=== PATIENT | female | born 1940 | race Caucasian/White ===

== ENCOUNTER 2017-01-30 10:20 | Day surgery (SDC) | payer MEDICARE, MEDICAID ==
[~2017-01-30 10:20] MED LIST: Lactated Ringers 1,000 ML IV SCH; Sodium Chloride 0.9% 10 ML Syringe FLUSH PRN
--- NOTE | 2017-01-30 10:57 | PCM.HPR ---
H & P Addendum review - H & P Addendum Review Date of Original H & P: 01/23/17 Date Reviewed: 01/30/17 Time Reviewed: 10:57 Patient was Examined: No Changes
[2017-01-30] MEDS ORDERED: Midazolam 1 MG/ML 2 ML SDV ONE (11:00)
[2017-01-30] MEDS ORDERED: fentaNYL 100 MCG/2 ML SDV ONE (11:00)
[2017-01-30] MEDS ORDERED: Propofol 200 MG/20 ML SDV ONE (11:01)
[2017-01-30] MEDS ORDERED: Lidocaine 2% 5 ML SDV ONE (11:15)
[2017-01-30] MEDS ORDERED: Propofol 200 MG/20 ML SDV IV ONE (11:15)
--- NOTE | 2017-01-30 11:33 | PCM.OPNOTE ---
- General Post-Op/Procedure Note Date of Surgery/Procedure: 01/30/17 Operative Procedure(s): EGD Findings: Small HH Pre Op Diagnosis: Dysphasia Post-Op Diagnosis: Same Anesthesia Technique: MAC Primary Surgeon: Kirill Coyle Anesthesia Provider: Caitlyn Marquez Complications: None Condition: Good Free Text/Narrative:: Intake & Output 01/29/17 01/30/17 01/30/17 22:59 06:59 14:59 Intake Total 300 Balance 300
--- NOTE | 2017-01-30 13:37 | OR ---
Date of Procedure: 01/30/2017 PREOPERATIVE DIAGNOSIS: Dysphagia. POSTOPERATIVE DIAGNOSIS: Small hiatal hernia. PROCEDURE: EGD. ANESTHESIA: IV sedation. DESCRIPTION OF PROCEDURE: The patient was brought to the procedure room, where IV sedation was administered. An oral bite block was placed and the upper endoscope advanced into the cervical esophagus with some difficulty, requiring some mild pressure. Vocal cords and hypopharynx all appeared normal. The scope was then advanced to the 3rd portion of the duodenum. The duodenum and pylorus were normal. The antrum and body of the stomach were normal. Retroflexion revealed a small hiatal hernia. Squamocolumnar junction was normal. There was no stricture, esophagitis, erosions or other abnormalities noted. Scope was slowly withdrawn through the esophagus, which all appears normal. I do not see any source for the patient's dysphagia. I will discuss the findings with Alma Jean Baptiste, and if symptoms persist, an esophagram may be beneficial for the evaluation of her swallowing. TONI CHRISTIANSON MD /[id number]
[2017-01-30 14:01] VITALS: BP 144/75
== END 2017-01-30 13:03 | disposition home or self-care (01) ==
LOC: LL.SDS 10:20
PROVIDERS: ATTEND Surgery
DX: K44.9 Diaphragmatic hernia without obstruction or gangrene (principal); Z79.899 Other long term (current) drug therapy
CPT/HCPCS: 43235; J2250; J2704; J3010; J7120; 00740

== ENCOUNTER 2023-03-04 19:23 | Emergency (ER) | payer MEDICARE, MEDICAID ==
[2023-03-04 19:56] LABS: BASOPHILS ABSOLUTE AUTO 0.05 K/uL (0.00-0.20); EOSINOPHILS ABSOLUTE AUTO 0.48 K/uL (0.00-0.50); EOSINOPHILS PERCENT AUTO 9.2 % (0.0-5.0); HEMATOCRIT 40.3 % (34.0-46.0); HEMOGLOBIN 13.4 g/dL (11.7-15.5); LYMPHOCYTES ABSOLUTE AUTO 1.32 K/uL (0.50-3.50); LYMPHOCYTES PERCENT AUTO 25.4 % (10.0-50.0); MEAN CORPUSCULAR HEMOGLOBIN 30.5 pg (28.2-33.3); MEAN CORPUSCULAR HGB CONC 33.3 g/dL (31.7-36.0); MEAN CORPUSCULAR VOLUME 91.8 fL (84.0-98.0); MONOCYTES ABSOLUTE AUTO 0.38 K/uL (0.00-1.00); MONOCYTES PERCENT AUTO 7.3 % (2.0-14.0); NEUTROPHILS ABSOLUTE AUTO 2.96 K/uL (1.40-7.00); NEUTROPHILS PERCENT AUTO 57.1 % (45.0-80.0); PLATELET COUNT,PLT 188 K/uL (150-350); RED BLOOD CELL COUNT 4.39 M/uL (3.77-5.09); RED CELL DISTRIBUTION WIDTH 13.7 % (11.2-14.1); WHITE BLOOD CELL COUNT,WBC 5.2 K/uL (4.0-10.2)
[2023-03-04] MEDS: Nitroglycerin/D5W 25 MG/250 ML BOTTLE IV SCH (19:58)
[2023-03-04] MEDS: Sodium Chloride 0.9% 250 ML IV SCH (20:04)
[2023-03-04 20:16] LABS: ALBUMIN 4.4 g/dL (3.4-5.0); BILIRUBIN TOTAL 0.7 mg/dL (0.2-1.0); CREATININE 0.84 mg/dL (0.51-1.17); EST CRCL DRUG DOSING (CG) 44.86 mL/min; POTASSIUM,K 3.6 mmol/L (3.5-5.1); PROTEIN TOTAL,TP 7.5 g/dL (6.4-8.2)
[2023-03-04 20:21] LABS: PROTHROMBIN TIME 10.4 SEC (9.0-11.1)
[2023-03-04] MEDS: Labetalol 20 MG/4 ML Syringe IVPUSH ONE (20:53)
[2023-03-04] MEDS: Sodium Chloride 0.9% 10 ML Syringe FLUSH PRN (20:54)
[2023-03-04 21:29] VITALS: PULSE 60
[2023-03-04 21:48] VITALS: BP 170/86
== END 2023-03-04 22:00 | disposition home or self-care (01) ==
LOC: LL.ED 19:23
DX: I10 Essential (primary) hypertension (principal); E78.00 Pure hypercholesterolemia, unspecified; E03.9 Hypothyroidism, unspecified; E66.9 Obesity, unspecified; Z68.29 Body mass index [BMI] 29.0-29.9, adult
CPT/HCPCS: 36415; 80053; 83880; 84484; 85025; 85610; 93005; 93010; 96365; 96375; 99284; 99284-25; J3490; J7050

== ENCOUNTER 2023-03-10 19:49 | Emergency (ER) | payer MEDICARE, MEDICAID ==
[2023-03-10 20:45] LABS: BASOPHILS ABSOLUTE AUTO 0.07 K/uL (0.00-0.20); BASOPHILS PERCENT AUTO 1.5 % (0.0-2.0); EOSINOPHILS ABSOLUTE AUTO 0.53 K/uL (0.00-0.50); HEMATOCRIT 34.8 % (34.0-46.0); HEMOGLOBIN 11.5 g/dL (11.7-15.5); LYMPHOCYTES ABSOLUTE AUTO 1.54 K/uL (0.50-3.50); LYMPHOCYTES PERCENT AUTO 32.1 % (10.0-50.0); MEAN CORPUSCULAR HEMOGLOBIN 30.7 pg (28.2-33.3); MEAN CORPUSCULAR VOLUME 92.8 fL (84.0-98.0); MONOCYTES ABSOLUTE AUTO 0.43 K/uL (0.00-1.00); NEUTROPHILS ABSOLUTE AUTO 2.23 K/uL (1.40-7.00); NEUTROPHILS PERCENT AUTO 46.4 % (45.0-80.0); PLATELET COUNT,PLT 182 K/uL (150-350); RED BLOOD CELL COUNT 3.75 M/uL (3.77-5.09); RED CELL DISTRIBUTION WIDTH 13.5 % (11.2-14.1); WHITE BLOOD CELL COUNT,WBC 4.8 K/uL (4.0-10.2)
[2023-03-10] MEDS: Losartan 25 MG Tab PO ONE (20:53)
[2023-03-10 21:05] LABS: ALANINE AMINOTRANSFERASE,ALT 24 U/L (12-78); ALBUMIN 3.6 g/dL (3.4-5.0); ALKALINE PHOSPHATASE 84 IU/L (46-116); ANION GAP 7.6 meq/L (7-15); ASPARTATE AMNIOTRANSFERASE,AST 25 U/L (15-37); BILIRUBIN TOTAL 0.4 mg/dL (0.2-1.0); BLOOD UREA NITROGEN,BUN 23 mg/dL (7-18); CALCIUM 8.4 mg/dL (8.5-10.1); CARBON DIOXIDE,CO2 26.4 mmol/L (21.0-32.0); CHLORIDE,CL 107 mmol/L (98-107); CREATININE 1.03 mg/dL (0.51-1.17); ESTIMATED GFR 54 mL/min (>=60); GLUCOSE RANDOM 104 mg/dL (70-99); MAGNESIUM 2.3 mg/dL (1.8-2.4); POTASSIUM,K 3.9 mmol/L (3.5-5.1); PROTEIN TOTAL,TP 6.4 g/dL (6.4-8.2); SODIUM,NA 141 mmol/L (136-145)
[2023-03-10 21:10] VITALS: PULSE 49
[2023-03-10 21:40] VITALS: BP 150/80
== END 2023-03-10 21:25 | disposition home or self-care (01) ==
LOC: LL.ED 19:49
DX: I10 Essential (primary) hypertension (principal); E78.00 Pure hypercholesterolemia, unspecified; E03.9 Hypothyroidism, unspecified; Z79.899 Other long term (current) drug therapy
CPT/HCPCS: 36415; 70450; 80053; 83735; 84443; 84484; 85025; 99284; A9270-GY